=== PATIENT | male | born 1945 | race Caucasian/White ===

== ENCOUNTER → 2017-04-17 | Outpatient (CLI) | payer MEDICARE ==
--- NOTE | 2017-04-17 10:41 | PCVCIMAG ---
APPROVED REPORT Study performed: 04/17/2017 09:05:49 EXAM: Comprehensive 2D, Doppler, and color-flow Echocardiogram Patient Location: Echo lab Status: routine BSA: 2.13 HR: 58 bpmBP: 116/78 mmHg Rhythm: NSR Other Information Study Quality: Sinus arrhythmia Indications mitral regurgitation, thoracic aortic aneurysm 2D Dimensions LVEF(%): 59.14 (>50%) IVSd: 10.91 (7-11mm) LVDd: 50.15 mm PWd: 9.89 (7-11mm)Ascending Ao: 40.21 (22-36mm) LVDs: 34.36 (25-40mm) Left Atrium: 44.32 (27-40mm) Aortic Root: 39.54 mm LV Single Plane 4CH: 55.04 % LV Single Plane 2CH: 64.83 %Will's LVEF: 59.94 % Biplane EF: 59.7 % Volumes Left Atrial Volume (Systole) Single Plane 4CH: 86.16 mLSingle Plane 2CH: 91.34 mL LA ESV Index: 45.00 mL/m2 Aortic Valve AoV Peak Merlin.: 1.56 m/s AO Peak Gr.: 9.69 mmHgLVOT Max P.34 mmHg LVOT Max V: 1.08 m/s Mitral Valve E/A Ratio: 1.8 MV Decel. Time: 245.32 ms MV E Max Merlin.: 0.76 m/s MV A Merlin.: 0.43 m/s IVRT: 117.65 ms Pulmonary Valve PV Peak Merlin.: 0.99 m/sPV Peak Gr.: 3.91 mmHg Pulmonary Vein P Vein S: 0.43 m/sP Vein A: 0.34 m/s P Vein D: 0.61 m/sP Vein A Dur.: 148.8 msec P Vein S/D Ratio: 0.70 Tricuspid Valve TR Peak Merlin.: 2.32 m/s TR Peak Gr.: 21.47 mmHg Left Ventricle The left ventricle is normal size. There is normal LV segmental wall motion. There is normal left ventricular wall thickness. Left ventricular systolic function is normal. The left ventricular ejection fraction is within the normal range. LVEF is 55-60%. Grade II - pseudonormal filling dynamics. Right Ventricle The right ventricle is normal size. The right ventricular systolic function is normal. Atria Left atrium is moderately dilated. Right atrium is mildly dilated. Aortic Valve The aortic valve is normal in structure. Trivial aortic regurgitation is present. There is no aortic valvular stenosis. Mitral Valve Mild nonspecific thickening of anterior leaflet Moderate mitral regurgitation. No evidence of mitral valve stenosis. Tricuspid Valve The tricuspid valve is normal in structure. Mild tricuspid regurgitation with PAP of 28 mmHg. Pulmonic Valve The pulmonary valve is normal in structure. There is moderate pulmonic valvular regurgitation. Great Vessels The aortic root is normal in size. The ascending aorta is mildly dilated to 4.1 cm and aortic sinus of valsalva is dilated to 4.5 cm. IVC is normal in size and collapses with >50% inspiration Pericardium There is no pericardial effusion. <Conclusion> Left ventricular systolic function is normal. There is normal LV segmental wall motion. LVEF is 55-60%. Grade II diastolic dysfuntion Left atrium is moderately dilated. The aortic valve is normal in structure. No aortic valvular stenosis or insufficiency. Mild nonspecific thickening of anterior leaflet. Moderate mitral regurgitation. The ascending aorta is mildly dilated to 4.1 cm and aortic sinuses of Valsalva is dilated to 4.5 cm. There is no pericardial effusion.
== END | disposition home or self-care (01) ==
LOC: PCVCIMAG 10:33
PROVIDERS: ATTEND Internal Medicine
DX: I34.0 Nonrheumatic mitral (valve) insufficiency (principal); I71.2 Thoracic aortic aneurysm, without rupture; I10 Essential (primary) hypertension; E78.5 Hyperlipidemia, unspecified; C91.10 Chronic lymphocytic leukemia of B-cell type not having achieved remission; R00.0 Tachycardia, unspecified; I44.30 Unspecified atrioventricular block; Z79.899 Other long term (current) drug therapy
CPT/HCPCS: 80061; 93005; 93306; G0463

== ENCOUNTER → 2018-04-23 | Outpatient (CLI) | payer MEDICARE ==
--- NOTE | 2018-04-23 10:12 | PCVCIMAG ---
APPROVED REPORT Study performed: 04/23/2018 08:50:48 EXAM: Comprehensive 2D, Doppler, and color-flow Echocardiogram Patient Location: Echo lab Status: routine BSA: 2.14 HR: 49 bpmBP: 134/80 mmHg Rhythm: Bradycardia w/ PACs Other Information Study Quality: Adequate Risk Factors: Cardiac Risk Factors: HTN Indications mitral regurgitation, dilated thoracic ascending aorta 2D Dimensions IVSd: 12.72 (7-11mm) LVDd: 46.48 mm PWd: 10.68 (7-11mm)Ascending Ao: 43.23 (22-36mm) LVDs: 33.03 (25-40mm) Left Atrium: 46.75 (27-40mm) Aortic Root: 39.91 mm LV Single Plane 4CH: 60.10 % LV Single Plane 2CH: 68.56 % Biplane EF: 64.9 % Volumes Left Atrial Volume (Systole) Single Plane 4CH: 131.12 mLSingle Plane 2CH: 114.52 mL LA ESV Index: 58.00 mL/m2 Aortic Valve AoV Peak Merlin.: 1.45 m/s AO Peak Gr.: 8.65 mmHgLVOT Max P.95 mmHg LVOT Max V: 0.99 m/s Mitral Valve E/A Ratio: 1.4 MV Decel. Time: 267.57 ms MV E Max Merlin.: 0.81 m/s MV A Merlin.: 0.57 m/s IVRT: 124.57 ms Pulmonary Valve PV Peak Merlin.: 1.04 m/sPV Peak Gr.: 4.32 mmHg Pulmonary Vein P Vein S: 0.43 m/sP Vein A: 0.31 m/s P Vein D: 0.57 m/sP Vein A Dur.: 156.9 msec P Vein S/D Ratio: 0.75 Tricuspid Valve TR Peak Merlin.: 2.62 m/s TR Peak Gr.: 27.46 mmHg Left Ventricle The left ventricle is normal size. There is normal LV segmental wall motion. There is normal left ventricular wall thickness. Left ventricular systolic function is normal. The left ventricular ejection fraction is within the normal range. LVEF is 65%. Grade II - pseudonormal filling dynamics. Right Ventricle The right ventricle is normal size. The right ventricular systolic function is normal. Atria Left atrium is severely dilated. The right atrium size is normal. Aortic Valve The aortic valve is mildly sclerotic Trace aortic regurgitation. There is no aortic valvular stenosis. Mitral Valve Mild nonspecific thickening of anterior leaflet Moderate mitral regurgitation. No evidence of mitral valve stenosis. Tricuspid Valve The tricuspid valve is normal in structure. Mild tricuspid regurgitation with PAP of 34 mmHg. Pulmonic Valve The pulmonary valve is normal in structure. There is no pulmonic valvular regurgitation. Great Vessels Aortic root is mildly dilated to 4.0 cm and the aortic sinus of valsalva is dilated to 4.4 cm. The ascending aorta is mildly dilated 4.3 cm. IVC is normal in size and collapses >50% with inspiration. Pericardium There is no pericardial effusion. There is no pleural effusion. <Conclusion> Left ventricular systolic function is normal. There is normal LV segmental wall motion. LVEF is 65%. Moderate diastolic dysfunction Left atrium is severely dilated. The aortic valve is mildly sclerotic. Trace aortic regurgitation, no stenosis Mild nonspecific thickening of anterior leaflet. Moderate mitral regurgitation. Mild tricuspid regurgitation with pulmonary artery pressure of 34 mmHg. Aortic root is mildly dilated to 4.0 cm; sinus of valsalva is dilated to 4.4 cm. Ascending aorta (4.3 cm). There is no pericardial effusion.
== END | disposition home or self-care (01) ==
LOC: PCVCIMAG 12:54
PROVIDERS: ATTEND Internal Medicine
DX: I08.1 Rheumatic disorders of both mitral and tricuspid valves (principal); I71.2 Thoracic aortic aneurysm, without rupture; I10 Essential (primary) hypertension; E78.5 Hyperlipidemia, unspecified; C91.10 Chronic lymphocytic leukemia of B-cell type not having achieved remission; Z79.899 Other long term (current) drug therapy
CPT/HCPCS: 93005; 93306; G0463

== ENCOUNTER → 2018-12-24 | Outpatient (CLI) | payer MEDICARE | END | disposition home or self-care (01) | LOC: PCVCCLINIC 14:00 | PROVIDERS: ATTEND Internal Medicine | DX: I48.1 Persistent atrial fibrillation (principal); I34.0 Nonrheumatic mitral (valve) insufficiency; I10 Essential (primary) hypertension; E78.5 Hyperlipidemia, unspecified; I71.2 Thoracic aortic aneurysm, without rupture; C91.10 Chronic lymphocytic leukemia of B-cell type not having achieved remission | CPT/HCPCS: 36415; 80061; 93005; G0463 ==

== ENCOUNTER → 2019-01-28 | Outpatient (CLI) | payer MEDICARE | END | disposition home or self-care (01) | LOC: PCVCCLINIC 13:20 | PROVIDERS: ATTEND Internal Medicine | DX: I34.0 Nonrheumatic mitral (valve) insufficiency (principal); I48.1 Persistent atrial fibrillation; I10 Essential (primary) hypertension; E78.5 Hyperlipidemia, unspecified; I71.2 Thoracic aortic aneurysm, without rupture; C91.10 Chronic lymphocytic leukemia of B-cell type not having achieved remission | CPT/HCPCS: G0463 ==